=== PATIENT | male | born 1970 | race Caucasian/White ===

== ENCOUNTER → 2021-03-01 | Outpatient (CLI) | payer OTHER ==
[~2021-03-01] MED LIST: ZOFRAN 4 MG TAB4 MG PO
== END ==
LOC: RT 15:57
DX: C92.10 Chronic myeloid leukemia, BCR/ABL-positive, not having achieved remission (principal); Z79.899 Other long term (current) drug therapy
CPT/HCPCS: 93005

== ENCOUNTER 2021-03-21 18:36 | Emergency (ER) | payer OTHER ==
[2021-03-21 19:45] LABS: HEMOGLOBIN 14.9 gm/dl (14.0-17.5); RED BLOOD COUNT 4.57 M/UL (4.20-5.50); WHITE BLOOD COUNT 6.8 K/UL (4.5-11.0)
[2021-03-21 20:06] LABS: BUN/CREATININE RATIO 16 (0-10)
== END 2021-03-22 00:22 | disposition home or self-care (01) ==
LOC: ER1 18:36
PROVIDERS: Physician Assistant Medical
DX: U07.1 COVID-19 (principal); E78.5 Hyperlipidemia, unspecified; E11.9 Type 2 diabetes mellitus without complications; I10 Essential (primary) hypertension
CPT/HCPCS: 71045; 80053; 85025; 99284; U0002